=== PATIENT | male | born 1975 | race American Indian/Alaskan Native ===

== ENCOUNTER 2019-03-20 14:00 | Emergency (ER) | payer BC ==
[2019-03-20 15:08] LABS: BASO % 0.7 % (0.0-2.0); EOS # 0.2 K/uL (0.0-0.7); HEMOGLOBIN 14.3 g/dL (12.0-18.0); LYMPH # 2.1 K/uL (1.0-4.3); LYMPH % 29.4 % (20.0-40.0); MEAN CELL VOLUME 92.2 fL (80.0-94.0); MEAN CORPUSCULAR HEMOGLOBIN 30.7 pg (27.0-31.0); MEAN CORPUSCULAR HGB CONC 33.3 g/dL (33.0-37.0); MEAN PLATELET VOLUME 9.6 fL (7.2-11.7); MONO # 0.9 K/uL (0.0-0.8); NEUT % 54.9 % (50.0-75.0); RBC 4.67 Mil/uL (4.40-5.90); RED CELL DISTRIBUTION WIDTH 14.1 % (11.5-14.5); WHITE BLOOD COUNT 7.2 K/uL (4.8-10.8)
[2019-03-20 15:16] LABS: INR 1.1; PARTIAL THROMBOPLASTIN TIME 35.1 SECONDS (21-34); PROTHROMBIN TIME 11.9 SECONDS (9.7-12.2)
[2019-03-20 15:26] LABS: ALB/GLOB RATIO 1.4 (1.0-2.1); ALBUMIN 4.5 g/dL (3.5-5.0); CALCIUM 9.6 mg/dl (8.6-10.4)
--- NOTE | 2019-03-20 15:55 | C.PDOC ---
History Of Present Illness 44 y/o male presents to ED complaining of a rash on the back of his left leg and multiple bruises on left calf x4 days. Denies any known injury or bug bites. Denies calf pain, chest pain, SOB, or fever. He admits to PMHx of hypertension. States he hasnt taken his lisinopril in multiple months. Time Seen by Provider: 03/20/19 14:20 Chief Complaint (Nursing): Abnormal Skin Integrity History Per: Patient History/Exam Limitations: no limitations Onset/Duration Of Symptoms: Days Current Symptoms Are (Timing): Still Present Past Medical History Reviewed: Historical Data, Nursing Documentation, Vital Signs Vital Signs: Last Vital Signs Temp 99.2 F 03/20/19 14:05 Pulse 80 03/20/19 14:54 Resp 20 03/20/19 14:05 BP 195/137 H 03/20/19 14:54 Pulse Ox 96 03/20/19 14:05 - Medical History PMH: HTN Denies: Chronic Kidney Disease Family History: States: No Known Family Hx - Social History Hx Alcohol Use: No Hx Substance Use: No - Immunization History Hx Tetanus Toxoid Vaccination: No Hx Influenza Vaccination: No Hx Pneumococcal Vaccination: No Review Of Systems Constitutional: Negative for: Fever, Chills Cardiovascular: Negative for: Chest Pain Respiratory: Negative for: Shortness of Breath Skin: Positive for: Rash (back of left leg), Bruising (multiple bruises on left calf) Neurological: Negative for: Weakness, Numbness Physical Exam - Physical Exam Appears: Non-toxic, No Acute Distress, Other (comfortable) Skin: Warm, Dry Head: Normacephalic Eye(s): bilateral: Normal Inspection Oral Mucosa: Moist Neck: Supple Cardiovascular: Rhythm Regular, No Murmur Respiratory: Normal Breath Sounds, No Rales, No Rhonchi, No Wheezing Extremity: No Deformity, Other (multiple ecchymotic areas of the left calf, nontender, mildly swollen; popliteal fossa area has small eschar with surrounding erythema) Extremity: Bilateral: Normal ROM Pulses: Left Dorsalis Pedis: Normal, Right Dorsalis Pedis: Normal Neurological/Psych: Oriented x3, Normal Speech, Normal Motor, Normal Sensation ED Course And Treatment - Laboratory Results Result Diagrams: 03/20/19 15:04 03/20/19 15:04 Lab Results: PT 11.9 SECONDS (9.7-12.2) 03/20/19 15:04 INR 1.1 03/20/19 15:04 APTT 35.1 SECONDS (21-34) H 03/20/19 15:04 Total Bilirubin 0.6 mg/dL (0.2-1.3) 03/20/19 15:04 AST 23 U/L (17-59) 03/20/19 15:04 ALT 39 U/L (21-72) 03/20/19 15:04 Alkaline Phosphatase 75 U/L (38-126) 03/20/19 15:04 Total Protein 7.7 g/dL (6.3-8.3) 03/20/19 15:04 Albumin 4.5 g/dL (3.5-5.0) 03/20/19 15:04 Globulin 3.2 gm/dL (2.2-3.9) 03/20/19 15:04 Albumin/Globulin Ratio 1.4 (1.0-2.1) 03/20/19 15:04 O2 Sat by Pulse Oximetry: 96 (RA) Pulse Ox Interpretation: Normal Progress Note: Bloodwork and doppler ordered. Patient given lisinopril. Disposition Counseled Patient/Family Regarding: Diagnosis, Need For Followup, Rx Given - Disposition Referrals: Fortino Elias MD [Medical Doctor] - Disposition: HOME/ ROUTINE Disposition Time: 17:15 Condition: STABLE Additional Instructions: FOLLOW UP WITH YOUR DOCTOR IN 1-2 DAYS USE MEDICATIONS DIRECTED RETURN TO ER IF SYMPTOMS WORSEN Prescriptions: Cephalexin [Keflex] 500 mg PO BID #14 capsule Lisinopril [Zestril] 20 mg PO DAILY #30 tab Instructions: Cellulitis (Skin Infection), Adult (DC), High Blood Pressure (DC) Forms: [employer] (Swedish) Print Language: CITIZ[place] - Clinical Impression Clinical Impression: Left leg cellulitis, Hypertension, Creatinine elevation - Scribe Statement The provider has reviewed the documentation as recorded by the Milla Esteves Provider Attestation: All medical record entries made by the Leighaibkavya were at my direction and personally dictated by me. I have reviewed the chart and agree that the record accurately reflects my personal performance of the history, physical exam, medical decision making, and the department course for this patient. I have also personally directed, reviewed, and agree with the discharge instructions and disposition.
[2019-03-20 17:32] VITALS: BP 180/102; PULSE 76; RESP 16; TEMP 97.9; O2SAT 98
--- NOTE | 2019-03-22 09:17 | VASCLAB ---
Date of service: 03/20/2019 PROCEDURE: Left Lower Extremity Venous Duplex Exam. HISTORY: LEG DISCOLORATION, SWELLING R/O DVT PRIORS: None. TECHNIQUE: Left common femoral, femoral, popliteal and posterior tibial, peroneal and great saphenous veins were evaluated. Flow was assessed with color Doppler, compressibility, assessment of phasic flow and augmentation response. Report prepared by PATIENCE Raya FINDINGS: LEFT: 1. Common Femoral Vein: 1.1. Compressibility - Fully compressible: Thrombus - None : Flow - Phasic: Augmentation -Normal: Reflux - None. 2. Femoral Vein: 2.1. Compressibility - Fully compressible: Thrombus - None: Flow - Phasic: Augmentation -Normal: Reflux - None. 3. Popliteal Vein: 3.1. Compressibility - Fully compressible: Thrombus - None: Flow - Phasic: Augmentation -Normal: Reflux - None. 4. Posterior Tibial Vein: 4.1. Compressibility - Fully compressible: Thrombus - None: Flow - Phasic: Augmentation -Normal: Reflux - None. 5. Peroneal Vein: 5.1. Compressibility - Fully compressible: Thrombus - None: Flow - Phasic: Augmentation -Normal: Reflux - None. 6. Great Saphenous Vein: 6.1. Compressibility - Fully compressible: Thrombus - None: Flow - Phasic: Augmentation - Normal: Reflux - None. OTHER FINDINGS: Normal venous flow noted in the right common femoral vein. IMPRESSION: No evidence of deep or superficial vein thrombosis of the left lower extremity with excellent venous flow. Normal valve function noted of the left side.
== END 2019-03-20 17:31 | disposition home or self-care (01) ==
LOC: C.ER 14:00
DX: L03.116 Cellulitis of left lower limb (principal); I10 Essential (primary) hypertension; R79.89 Other specified abnormal findings of blood chemistry